=== PATIENT | male | born 1945 | race Caucasian/White ===

== ENCOUNTER 2025-03-04 11:16 | Emergency (ER) | payer MEDICARE ==
[2025-03-04] MEDS ORDERED: Sodium Chloride 0.9% 10 ML Syringe FLUSH PRN (11:28)
[2025-03-04 11:57] LABS: INR 1.1 (0.9-1.1); PTT,PARTIAL THROMBOPLSTIN TIME 26.8 SEC (23.8-34.4)
[2025-03-04 11:59] LABS: BASOPHILS ABSOLUTE AUTO 0.03 K/uL (0.00-0.20); BASOPHILS PERCENT AUTO 0.4 % (0.0-2.0); EOSINOPHILS ABSOLUTE AUTO 0.10 K/uL (0.00-0.50); EOSINOPHILS PERCENT AUTO 1.5 % (0.0-5.0); IMMATURE GRAN ABSOLUTE AUTO 0.01 10^3/uL (0.00-0.04); IMMATURE GRAN PERCENT AUTO 0.1 % (0.0-0.4); LYMPHOCYTES ABSOLUTE AUTO 1.20 K/uL (0.50-3.50); LYMPHOCYTES PERCENT AUTO 18.0 % (10.0-50.0); MONOCYTES ABSOLUTE AUTO 0.72 K/uL (0.00-1.00); MONOCYTES PERCENT AUTO 10.8 % (2.0-14.0); NEUTROPHILS ABSOLUTE AUTO 4.62 K/uL (1.40-7.00); NEUTROPHILS PERCENT AUTO 69.2 % (45.0-80.0); PLATELET COUNT,PLT 234 K/uL (150-350); RED BLOOD CELL COUNT 4.83 M/uL (4.33-5.41); RED CELL DISTRIBUTION WIDTH 13.9 % (11.2-14.1); WHITE BLOOD CELL COUNT,WBC 6.7 K/uL (4.0-10.2)
[2025-03-04 12:04] LABS: LACTIC ACID 3.5 mmol/L (0.4-2.0)
[2025-03-04 12:06] LABS: ALANINE AMINOTRANSFERASE,ALT 24.0 U/L (12-78); ASPARTATE AMNIOTRANSFERASE,AST 21.0 U/L (15-37); BILIRUBIN TOTAL 0.5 mg/dL (0.2-1.0); BLOOD UREA NITROGEN,BUN 18.0 mg/dL (7-18); CARBON DIOXIDE,CO2 27.3 mmol/L (21.0-32.0); CHLORIDE,CL 102.0 mmol/L (98-107); CREATININE 1.39 mg/dL (0.51-1.17); EST CRCL DRUG DOSING (CG) 44.49 mL/min; ESTIMATED GFR 52.0 mL/min (>=60); GLUCOSE RANDOM 185.0 mg/dL (70-99); POTASSIUM,K 3.7 mmol/L (3.5-5.1); PRO B-TYPE NATRIUR PEPT,BNPPRO 1717.0 pg/mL (0-125); PROTEIN TOTAL,TP 7.3 g/dL (6.4-8.2); SODIUM,NA 141.0 mmol/L (136-145)
[2025-03-04 12:11] LABS: CORONAVIRUS COVID-19 NAA NEGATIVE (NEGATIVE); INFLUENZA A NAA NEGATIVE (NEGATIVE); INFLUENZA B NAA NEGATIVE (NEGATIVE); RESPIRATORY SYNCYTIAL VIR NAA NEGATIVE (NEGATIVE)
[2025-03-04] MEDS ORDERED: Lactated Ringers 1,000 ML IV SCH (12:45)
[2025-03-04 17:56] VITALS: BP 129/60; PULSE 39
== END 2025-03-04 15:43 ==
LOC: LL.ED 11:16
DX: I44.0 Atrioventricular block, first degree (principal); E10.9 Type 1 diabetes mellitus without complications; I11.0 Hypertensive heart disease with heart failure; I50.9 Heart failure, unspecified; Z79.82 Long term (current) use of aspirin; Z79.4 Long term (current) use of insulin; Z79.899 Other long term (current) drug therapy
CPT/HCPCS: 36415; 71046; 80053; 83605; 83735; 83880; 84484; 85025; 85610; 85730; 87637; 93005; 93010; 99284; 99285